=== PATIENT | female | born 1980 | race Caucasian/White ===

== ENCOUNTER 2019-07-11 01:49 | Emergency (ER) | payer SELFPAY ==
[2019-07-11 01:54] VITALS: BP 161/109; PULSE 89; RESP 18; TEMP 97.4; O2SAT 98
[2019-07-11] MEDS ORDERED: CEFTRIAXONE 1 GM PDS IM ONE (02:42)
[2019-07-11] MEDS ORDERED: AZITHROMYCIN 250 MG TAB PO ONE (02:42)
[2019-07-11] MEDS ORDERED: METRONIDAZOLE 250 MG TAB PO ONE (02:42)
[2019-07-11] MEDS ORDERED: CEFTRIAXONE 1 GM PDS ONE (03:20)
[2019-07-11] MEDS ORDERED: AZITHROMYCIN 250 MG TAB ONE (03:21)
[2019-07-11] MEDS ORDERED: LIDOCAINE HCL 1% MPF 30 SOL ONE (03:21)
[2019-07-11] MEDS ORDERED: METRONIDAZOLE 250 MG TAB ONE (03:21)
== END 2019-07-11 03:45 | disposition home or self-care (01) | DRG 923 ==
LOC: ED 01:49
DX: T74.21XA Adult sexual abuse, confirmed, initial encounter (principal); N93.9 Abnormal uterine and vaginal bleeding, unspecified
CPT/HCPCS: 96372; 99283; 99285; J0696; A9270-GY; J2001